=== PATIENT | female | born 1955 | race African-American/Black ===

== ENCOUNTER 2018-11-03 05:12 | Emergency (ER) | payer MEDICAID ==
[~2018-11-03] VITALS: Ht 152.4 cm; Wt 57.0 kg
[~2018-11-03 05:12] MED LIST: ALBU2.5V13 IH
[2018-11-03] MEDS ORDERED: ONDANSETRON HCL 4MG/2ML INJ IV STA (06:58)
[2018-11-03] MEDS ORDERED: MORPHINE SULFATE 4 MG/ML CPJ (NOT FOR IM USE) IV STA (06:58)
[2018-11-03] MEDS ORDERED: SODIUM CHLORIDE 0.9% 1,000 ML IV ONE (06:58)
[2018-11-03] MEDS ORDERED: MORPHINE SULFATE 10 MG/ML CPJ IV SCH (07:15)
[2018-11-03 07:58] LABS: BASOPHILS % 0.7 % (0.0-2.0); EOSINOPHILS % 2.8 % (0.0-5.0); HEMATOCRIT. 45.7 % (36.0-48.0); LYMPHOCYTES % 24.4 % (20.0-50.0); MEAN CORPUSCULAR HEMOGLOBIN 30.1 pg (28.0-32.0); MEAN CORPUSCULAR VOLUME 91.3 fL (81.0-99.0); MEAN PLATELET VOLUME 8.5 fl (7.4-10.4); MONOCYTES % 6.9 % (2.0-8.0); NEUTROPHILS % 65.2 % (40.0-76.0); PLATELET 300 x1000/uL (130-400); RED CELL DISTRIBUTION WIDTH 14.6 % (11.6-14.6)
[2018-11-03 08:01] LABS: CHLORIDE 108 mEq/L (98-107)
[2018-11-03 08:03] LABS: PROTHROMBIN TIME 10.1 sec (9.1-11.1)
[2018-11-03 09:43] VITALS: BP 156/79
[2018-11-03] MEDS ORDERED: IOHEXOL-300 100 ML BOTTLE ONE (09:48)
== END 2018-11-03 09:59 | disposition home or self-care (01) ==
LOC: ER 05:12 → CANBEDREQ 15:30
DX: K92.2 Gastrointestinal hemorrhage, unspecified (principal); M54.5 Low back pain
CPT/HCPCS: 36415; 74177; 80053; 85025; 85610; 86850; 86900; 86901; 96374; 96375; 99284; J2270; J2405; J7030; Q9967

== ENCOUNTER 2019-11-24 11:09 | Inpatient (IN) | payer MEDICAID ==
[~2019-11-24] VITALS: Ht 152.4 cm; Wt 57.6 kg
[2019-11-24] MEDS ORDERED: METHYLPREDNISOLONE SOD SUCC 125 MG/2 ML VIAL IV STA (11:16)
[2019-11-24] MEDS ORDERED: ALBUTEROL (0.083%) 2.5MG/3ML NEB HHN STA (11:16)
[2019-11-24] MEDS ORDERED: IPRATROPIUM BROMIDE (0.02%) 0.5MG/2.5ML NEB HHN STA (11:16)
[2019-11-24] MEDS ORDERED: IPRATROPIUM BROMIDE (0.02%) 0.5MG/2.5ML NEB ONE (11:30)
[2019-11-24] MEDS ORDERED: ALBUTEROL (0.083%) 2.5MG/3ML NEB ONE (11:30)
[2019-11-24 12:05] LABS: BG BASE EXCESS -1.8 mmol/L (-2.0-2.0); BG BILEVEL POS AIRWAY PRESSURE 20/5; BG CARBOXYHEMOGLOBIN 1.5 % (0.5-1.5); BG FRACTION INSPIRED OXYGEN 50; BG HCO3 ACT 23.9 mmol/L (22.0-26.0); BG METHEMOGLOBIN 0.6 % (0.0-1.5); BG OXYHEMOGLOBIN 96.9 % (94.0-97.0); BG PCO2 43.9 mmHg (35.0-45.0); BG PH 7.354 (7.350-7.450); BG PO2 149.3 mmHg (75.0-100.0); BG SAMPLE SITE LEFT BRACHIAL; BG TOTAL HEMOGLOBIN 16.5 g/dL (12.0-18.0); BG VENT MODE MASK - BIPAP
[2019-11-24 12:07] LABS: BASOPHILS % 0.7 % (0.0-2.0); EOSINOPHILS % 0.8 % (0.0-5.0); HEMATOCRIT. 49.4 % (36.0-48.0); HEMOGLOBIN. 16.4 g/dL (12.0-16.0); LYMPHOCYTES % 19.3 % (20.0-50.0); MEAN CORPUSCULAR HEMOGLOBIN 30.2 pg (28.0-32.0); MEAN CORPUSCULAR VOLUME 90.9 fL (81.0-99.0); MEAN PLATELET VOLUME 8.5 fl (7.4-10.4); NEUTROPHILS % 73.2 % (40.0-76.0); PLATELET 258 x1000/uL (130-400); RED BLOOD CELL COUNT 5.43 mill/uL (4.2-5.4); RED CELL DISTRIBUTION WIDTH 14.6 % (11.6-14.6)
[2019-11-24 12:13] LABS: CHLORIDE 109 mEq/L (98-107)
[2019-11-24] MEDS ORDERED: BENZONATATE 100MG CAPSULE PO PRN (14:15)
[2019-11-24] MEDS ORDERED: ONDANSETRON HCL 4MG/2ML INJ IV PRN (14:15)
[2019-11-24] MEDS ORDERED: IPRATROPIUM/ALBUTEROL 0.5-3(2.5)MG/3ML NEB HHN PRN (14:15)
[2019-11-24 16:00] VITALS: BP 154/66
[2019-11-24 16:01] VITALS: BP 154/66
[2019-11-24] MEDS: IPRATROPIUM/ALBUTEROL 0.5-3(2.5)MG/3ML NEB HHN SCH ×2 (16:25→20:12)
[2019-11-24] MEDS: METHYLPREDNISOLONE SOD SUCC 40 MG/ML VIAL IV SCH (16:39)
[2019-11-24] MEDS ORDERED: MAGNESIUM/ALUMINUM HYDROXIDE/SIMETHICONE 30ML UDC PO PRN (18:00)
[2019-11-24] MEDS: ENOXAPARIN 40MG/0.4ML SYR SUBCUT SCH (18:30)
[2019-11-24] MEDS: LORATADINE 10MG TABLET PO SCH (18:47)
[2019-11-24] MEDS: FAMOTIDINE 20MG/2ML VIAL IV SCH (21:20)
[2019-11-24] MEDS: AZITHROMYCIN 500 MG in DEXT 5% WATER 250 ML IV SCH (21:20)
[2019-11-24] MEDS: FLUTICASONE PROPIONATE 50MCG/SPRAY BOTTLE BOTHNSTRLS SCH (21:21)
[2019-11-24] MEDS: ACETAMINOPHEN 325MG TABLET PO PRN (21:38)
[2019-11-25] MEDS: IPRATROPIUM/ALBUTEROL 0.5-3(2.5)MG/3ML NEB HHN SCH ×6 (00:21→19:50)
[2019-11-25] MEDS: METHYLPREDNISOLONE SOD SUCC 40 MG/ML VIAL IV SCH ×3 (00:38→09:59)
[2019-11-25 07:19] LABS: HEMATOCRIT. 50.3 % (36.0-48.0); HEMOGLOBIN. 16.6 g/dL (12.0-16.0); MEAN CORPUSCULAR HEMOGLOBIN 30.1 pg (28.0-32.0); MEAN CORPUSCULAR VOLUME 91.5 fL (81.0-99.0); MEAN PLATELET VOLUME 9.2 fl (7.4-10.4); PLATELET 245 x1000/uL (130-400); RED CELL DISTRIBUTION WIDTH 14.7 % (11.6-14.6)
[2019-11-25 07:59] LABS: CHLORIDE 110 mEq/L (98-107)
[2019-11-25 08:00] VITALS: BP 178/82
[2019-11-25] MEDS ORDERED: GUAIFENESIN 200MG/10ML SUGAR FREE UDC PO PRN (08:00)
[2019-11-25] MEDS: FLUTICASONE PROPIONATE 50MCG/SPRAY BOTTLE BOTHNSTRLS SCH ×2 (09:58→20:58)
[2019-11-25] MEDS: OMEPRAZOLE 20MG CAPSULE EXTENDED RELEASE PO SCH (09:58)
[2019-11-25] MEDS: LORATADINE 10MG TABLET PO SCH (09:59)
[2019-11-25] MEDS: FAMOTIDINE 20MG/2ML VIAL IV SCH ×2 (09:59→20:56)
[2019-11-25] MEDS: CLONIDINE 0.1MG TABLET PO PRN (10:01)
[2019-11-25 12:00] VITALS: BP 138/77
[2019-11-25] MEDS: METHYLPREDNISOLONE SOD SUCC 125 MG/2 ML VIAL IV SCH ×2 (13:56→20:56)
[2019-11-25 16:00] VITALS: BP 126/65
[2019-11-25] MEDS: MONTELUKAST SODIUM 10MG TABLET PO SCH (17:55)
[2019-11-25] MEDS: ENOXAPARIN 40MG/0.4ML SYR SUBCUT SCH (17:55)
[2019-11-25] MEDS: AZITHROMYCIN 500 MG in DEXT 5% WATER 250 ML IV SCH (20:57)
[2019-11-25] MEDS: GUAIFENESIN 600MG ER TABLET PO SCH (21:01)
[2019-11-25 22:00] VITALS: BP 156/75
[2019-11-25] MEDS: ACETAMINOPHEN 325MG TABLET PO PRN (23:30)
[2019-11-26] VITALS: BP 156/75
[2019-11-26] MEDS: IPRATROPIUM/ALBUTEROL 0.5-3(2.5)MG/3ML NEB HHN SCH ×6 (01:05→20:30)
[2019-11-26 04:00] VITALS: BP 146/75
[2019-11-26] MEDS: METHYLPREDNISOLONE SOD SUCC 125 MG/2 ML VIAL IV SCH ×3 (05:31→21:04)
[2019-11-26] MEDS: OMEPRAZOLE 20MG CAPSULE EXTENDED RELEASE PO SCH (05:56)
[2019-11-26 08:00] VITALS: BP 159/82
[2019-11-26] MEDS: FLUTICASONE PROPIONATE 50MCG/SPRAY BOTTLE BOTHNSTRLS SCH ×2 (09:03→20:50)
[2019-11-26] MEDS: LORATADINE 10MG TABLET PO SCH (09:03)
[2019-11-26] MEDS: GUAIFENESIN 600MG ER TABLET PO SCH ×2 (09:03→20:50)
[2019-11-26] MEDS: FAMOTIDINE 20MG/2ML VIAL IV SCH ×2 (09:04→21:04)
[2019-11-26 09:06] LABS: PLATELET ESTIMATE NORMAL
[2019-11-26] MEDS: ACETAMINOPHEN 325MG TABLET PO PRN ×2 (11:51→20:09)
[2019-11-26 12:00] VITALS: BP 150/71
[2019-11-26 16:00] VITALS: BP 133/70
[2019-11-26] MEDS: MONTELUKAST SODIUM 10MG TABLET PO SCH (16:12)
[2019-11-26] MEDS: ENOXAPARIN 40MG/0.4ML SYR SUBCUT SCH (16:12)
[2019-11-26] MEDS ORDERED: MAGNESIUM HYDROXIDE 400MG/5ML 30ML UDC PO PRN (18:45)
[2019-11-26 20:00] VITALS: BP 147/78
[2019-11-26] MEDS: AZITHROMYCIN 500 MG in DEXT 5% WATER 250 ML IV SCH (20:50)
[2019-11-27 04:00] VITALS: BP 132/72
[2019-11-27] MEDS: IPRATROPIUM/ALBUTEROL 0.5-3(2.5)MG/3ML NEB HHN SCH ×6 (04:14→20:41)
[2019-11-27] MEDS: ACETAMINOPHEN 325MG TABLET PO PRN ×3 (04:34→20:01)
[2019-11-27] MEDS: METHYLPREDNISOLONE SOD SUCC 125 MG/2 ML VIAL IV SCH ×3 (05:12→21:00)
[2019-11-27] MEDS: OMEPRAZOLE 20MG CAPSULE EXTENDED RELEASE PO SCH (07:40)
[2019-11-27 08:00] VITALS: BP 155/64
[2019-11-27] MEDS ORDERED: AZIT500T8 MT (08:08)
[2019-11-27] MEDS ORDERED: ALBU18HF2 IH (08:08)
[2019-11-27] MEDS ORDERED: CLAR10 PO (08:08)
[2019-11-27] MEDS ORDERED: IPRA3AMP9 NEB (08:08)
[2019-11-27] MEDS ORDERED: P20 MT (08:08)
[2019-11-27] MEDS ORDERED: OMEP20CA14 PO (08:08)
[2019-11-27] MEDS ORDERED: MONT10TA21 PO (08:08)
[2019-11-27] MEDS ORDERED: GUAI600T44 PO (08:08)
[2019-11-27] MEDS: FLUTICASONE PROPIONATE 50MCG/SPRAY BOTTLE BOTHNSTRLS SCH ×2 (08:53→20:56)
[2019-11-27] MEDS: GUAIFENESIN 600MG ER TABLET PO SCH ×2 (08:54→20:56)
[2019-11-27] MEDS: LORATADINE 10MG TABLET PO SCH (08:54)
[2019-11-27 12:00] VITALS: BP 141/81
[2019-11-27 16:00] VITALS: BP 179/61
[2019-11-27] MEDS: ENOXAPARIN 40MG/0.4ML SYR SUBCUT SCH (17:00)
[2019-11-27] MEDS: MONTELUKAST SODIUM 10MG TABLET PO SCH (17:54)
[2019-11-27 20:00] VITALS: BP 129/84
[2019-11-27] MEDS: AZITHROMYCIN 500 MG in DEXT 5% WATER 250 ML IV SCH (20:55)
[2019-11-28] VITALS (7 sets, daily range): BP systolic 127–161; BP diastolic 76–88
[2019-11-28] MEDS: IPRATROPIUM/ALBUTEROL 0.5-3(2.5)MG/3ML NEB HHN SCH ×4 (03:10→15:56)
[2019-11-28] MEDS: ACETAMINOPHEN 325MG TABLET PO PRN ×2 (05:12→13:43)
[2019-11-28] MEDS: METHYLPREDNISOLONE SOD SUCC 125 MG/2 ML VIAL IV SCH ×2 (05:13→14:43)
[2019-11-28] MEDS: OMEPRAZOLE 20MG CAPSULE EXTENDED RELEASE PO SCH ×2 (07:40→09:27)
[2019-11-28] MEDS: GUAIFENESIN 600MG ER TABLET PO SCH (09:27)
[2019-11-28] MEDS: LORATADINE 10MG TABLET PO SCH (09:27)
[2019-11-28] MEDS: CLONIDINE 0.1MG TABLET PO PRN (14:55)
== END 2019-11-28 18:14 | disposition home or self-care (01) | DRG 133 ==
LOC: ER 11:09 → 7WST 13:53 → EDBEDREQ 13:55 → ENRESERV 13:59 → CANRESERV 13:59 → ENRESERV 14:26
PROVIDERS: ADMIT Internal Medicine; ATTEND Internal Medicine
PROC: 5A09357 Assistance with Respiratory Ventilation, Less than 24 Consecutive Hours, Continuous Positive Airway Pressure (ICD-10-PCS; principal; 2019-11-24)
PROC: 5A09357 Assistance with Respiratory Ventilation, Less than 24 Consecutive Hours, Continuous Positive Airway Pressure (ICD-10-PCS; 2019-11-25)
DX: J96.00 Acute respiratory failure, unspecified whether with hypoxia or hypercapnia (principal); E87.8 Other disorders of electrolyte and fluid balance, not elsewhere classified; R65.10 Systemic inflammatory response syndrome (SIRS) of non-infectious origin without acute organ dysfunction; J44.1 Chronic obstructive pulmonary disease with (acute) exacerbation; J45.901 Unspecified asthma with (acute) exacerbation; K21.9 Gastro-esophageal reflux disease without esophagitis; I16.0 Hypertensive urgency; J06.9 Acute upper respiratory infection, unspecified; F12.90 Cannabis use, unspecified, uncomplicated; F17.210 Nicotine dependence, cigarettes, uncomplicated; I10 Essential (primary) hypertension; Z88.0 Allergy status to penicillin; Z79.899 Other long term (current) drug therapy; Z71.6 Tobacco abuse counseling
CPT/HCPCS: 36415; 36600; 71045; 80048; 80053; 82375; 82805; 83036; 83880; 84484; 85025; 93005; 94640; 94660; 96374; 99291; J0456; J1650; J2920; J2930; J3490; J7040; J7060; J7611; J7620

== ENCOUNTER 2020-05-06 20:30 | Emergency (ER) | payer MEDICARE, MEDICAID ==
[~2020-05-06] VITALS: Ht 152.4 cm; Wt 54.0 kg
[~2020-05-06 20:30] MED LIST changes: +ALBU18HF2 IH; -ALBU2.5V13 IH; +AZIT500T8 MT; +CLAR10 PO; +GUAI600T44 PO; +IPRA3AMP9 NEB; +MONT10TA21 PO; +OMEP20CA14 PO; +P20 MT
[2020-05-06 23:24] LABS: CHLORIDE 103 mEq/L (98-107)
[2020-05-06 23:25] LABS: BASOPHILS % 0.6 % (0.0-2.0); EOSINOPHILS % 3.1 % (0.0-5.0); HEMATOCRIT. 37.8 % (36.0-48.0); HEMOGLOBIN. 12.9 g/dL (12.0-16.0); LYMPHOCYTES % 19.3 % (20.0-50.0); MEAN CORPUSCULAR HEMOGLOBIN 30.3 pg (28.0-32.0); MEAN CORPUSCULAR VOLUME 88.7 fL (81.0-99.0); MEAN PLATELET VOLUME 7.7 fl (7.4-10.4); MONOCYTES % 9.7 % (2.0-8.0); NEUTROPHILS % 67.3 % (40.0-76.0); PLATELET 285 x1000/uL (130-400); RED BLOOD CELL COUNT 4.26 mill/uL (4.2-5.4); RED CELL DISTRIBUTION WIDTH 14.5 % (11.6-14.6)
[2020-05-07] MEDS ORDERED: LEVETIRACETAM 500MG PREMIX 100 ML IV ONE
[2020-05-07] MEDS ORDERED: SODIUM CHLORIDE 0.9% 1,000 ML IV ONE (00:30)
[2020-05-07 06:52] VITALS: BP 140/79
== END 2020-05-07 08:45 | disposition left against medical advice (07) ==
LOC: ER 20:30 → CANBEDREQ 05-07 08:44 → ER 05-07 08:45
DX: K94.23 Gastrostomy malfunction (principal); E86.0 Dehydration; R00.0 Tachycardia, unspecified; J45.909 Unspecified asthma, uncomplicated; I25.2 Old myocardial infarction; Z79.899 Other long term (current) drug therapy; Z88.0 Allergy status to penicillin
CPT/HCPCS: 36415; 71045; 80053; 83880; 84484; 85025; 93005; 96365; 99285; J1953; J7030

== ENCOUNTER → 2020-09-10 | Outpatient (CLI) | payer MEDICARE, MEDICAID ==
[~2020-09-10] MED LIST changes: +BARIUM SULFATE 176 GM SUSP.RECON ONE; +EZ-HD SUSPENSION(BARIUM SULFATE 340GM) PO ONE
== END | disposition home or self-care (01) ==
LOC: RAD 12:23
PROVIDERS: ATTEND Internal Medicine
DX: M75.101 Unspecified rotator cuff tear or rupture of right shoulder, not specified as traumatic (principal); M75.81 Other shoulder lesions, right shoulder; K22.4 Dyskinesia of esophagus
CPT/HCPCS: 73221; 74220

== ENCOUNTER 2021-04-21 08:07 | Emergency (ER) | payer MEDICARE, MEDICAID ==
[~2021-04-21] VITALS: Ht 152.4 cm; Wt 71.0 kg
[~2021-04-21 08:07] MED LIST changes: -BARIUM SULFATE 176 GM SUSP.RECON ONE; -EZ-HD SUSPENSION(BARIUM SULFATE 340GM) PO ONE
[2021-04-21] MEDS ORDERED: LORAZEPAM 0.5MG TABLET PO ONE (08:30)
[2021-04-21] MEDS ORDERED: KETOROLAC 60MG/2ML VIAL IM ONE (08:30)
[2021-04-21 08:38] VITALS: BP 164/63
== END 2021-04-21 08:53 | disposition home or self-care (01) ==
LOC: ER 08:07
DX: M25.552 Pain in left hip (principal); M25.551 Pain in right hip; R03.0 Elevated blood-pressure reading, without diagnosis of hypertension; J45.909 Unspecified asthma, uncomplicated; G40.909 Epilepsy, unspecified, not intractable, without status epilepticus; I25.2 Old myocardial infarction
CPT/HCPCS: 96372; 99283; J1885